=== PATIENT | male | born 1945 | race Caucasian/White ===

== ENCOUNTER 2016-12-22 14:51 | Inpatient (IN) | payer MEDICARE ==
--- NOTE | ~2016-12-22 | PUL ---
[id number] [place]. [address] NAME: MARBELLA GARCIA : 47 STATUS : ADM IN [facility]#: [id number] AGE: 71 ADM/REG DATE : 12/22/16 MR#: [id number] REPORT SERV DATE: 12/24/16 DICTATED BY: VALERIE ESCOBAR DATE: 12/24/16 REPORT STATUS : Draft TRANSCRIBED BY: MODL DATE: 12/24/16 PULMONARY FUNCTION TEST OVERNIGHT OXIMETRY START DATE OF TESTIN12/23/2016. END DATE OF TESTIN12/24/2016. COMMENTS: Testing conducted with the patient using home CPAP along with supplemental oxygen at a flow rate of 4 L/minute. RESULTS: Total valid sampling time, 5 hours 59 minutes and 31 seconds. Total time with an oxygen saturation less than 88%, 7 minutes and 40 seconds. Oxygen desaturation event index, 4.3. IMPRESSION: There was significant desaturation during this study conducted with the patient breathing supplemental oxygen at a flow rate of 4 L/minute along with his home CPAP. Recommend increasing the oxygen flow rate to a minimum of 5 L/minute with sleep. PS/MODL Valerie Escobar M.D. / [id number] CC: MD King Allen M.D.
--- NOTE | ~2016-12-22 | CN ---
Consultation Report [facility] [address] [place]. [address] NAME: MARBELLA LUKE : 47 STATUS : ADM Pb PAT#: [id number] AGE: 71 ADM/REG DATE : 12/22/16 MR#: [id number] REPORT SERV DATE: 12/22/16 DICTATED BY: VALERIE ESCOBAR DATE: 12/22/16 REPORT STATUS : Draft TRANSCRIBED BY: MODL DATE: 12/22/16 PULMONARY CONSULTATION DATE OF CONSULTATION: 12/22/2016 REASON FOR CONSULTATION: COPD exacerbation. HISTORY OF PRESENT ILLNESS: Mr. Luke is a 71-year-old white male, former smoker, with bullous emphysema, COPD, chronic bronchitis, hypoxia, on supplemental oxygen at a flow rate of 3 L/minute 24 hours per day, and obstructive sleep apnea on CPAP, who was admitted with a COPD exacerbation and acute exacerbation of chronic bronchitis. He is known to me from the outpatient pulmonary office. He is complaining of a two-week history of cough productive of copious clear sputum that prevented him from using his CPAP as prescribed. He also reports dyspnea that has increased from his baseline and wheezing. He denies fever, chills, nausea, vomiting, night sweats, hemoptysis, or chest pain. He did note that his heart rate was as high as 130 over the past few days, but states this was with significant dyspnea. He has been compliant with his outpatient pulmonary medications including Pulmicort 0.5 mg via nebulization twice daily, Brovana 15 mcg via nebulization twice daily, Spiriva 18 mcg once daily, and albuterol. He states he has been using albuterol via nebulization three to four times per day during the past two weeks due to his current symptoms. Since admission, he has received his usual bronchodilator regimen as well as IV steroids and states he is currently feeling "some better." PAST MEDICAL HISTORY: 1. COPD as noted above. 2. Bullous emphysema. 3. Chronic bronchitis. 4. Chronic hypoxia-dependent on supplemental oxygen at a flow rate of minimum of 3 L/minute 24 hours per day. 5. Obstructive sleep apnea-on CPAP. 6. Previous pneumothorax x2 related to prior COPD exacerbation and extreme coughing with rupture of blebs, treated with chest tube placement. 7. Anxiety. 8. Hypertension. 9. Chronic pain. FAMILY HISTORY: He denies family history of pulmonary diseases. SOCIAL HISTORY: He smoked one and a half to two packs of cigarettes per day for more than 40 years and quit two years ago. He denies ethanol intake, past/present drug use, chewing Consultation Report [address] [place]. [address] NAME: MARBELLA LUKE : 47 STATUS : ADM Pb PAT#: [id number] AGE: 71 ADM/REG DATE : 12/22/16 MR#: [id number] REPORT SERV DATE: 12/22/16 DICTATED BY: VALERIE ESCOBAR DATE: 12/22/16 REPORT STATUS : Draft TRANSCRIBED BY: MODL DATE: 12/22/16 tobacco, or occupational exposures. He is and has three children. MEDICATIONS: Outpatient and inpatient medications were reviewed and are as documented in the record. His outpatient pulmonary medications are Brovana 15 mcg via nebulization twice daily, Pulmicort 0.5 mg via nebulization twice daily, Spiriva 18 mcg once daily, and albuterol via nebulization as needed. He also has an albuterol metered dose inhaler. ALLERGIES: HE DENIES MEDICATION ALLERGIES. REVIEW OF SYSTEMS: A 10-point system review was conducted and is remarkable for the symptoms as described in the history of present illness. PHYSICAL EXAMINATION: VITAL SIGNS: Temperature 97.4 degrees, heart rate 82, blood pressure 154/89, respiratory rate 22 to 24, and oxygen saturation 99% on supplemental oxygen at a flow rate of 3 L/minute. GENERAL: Ill-appearing pale white male. Alert, oriented, appears short of breath. HEENT: Normocephalic. Atraumatic. There is no scleral icterus. The conjunctivae are clear. The oropharynx is clear. NECK: Supple. No lymphadenopathy was noted. LUNGS: There are scattered expiratory wheezes in all marquez. There are diminished breath sounds throughout. There are no crackles or rhonchi. The patient is tachypneic. HEART: Regular rate and rhythm with no ectopy. ABDOMEN: Soft. Nontender. Mildly distended. There are normal bowel sounds in all four quadrants. BILATERAL EXTREMITIES: There is no clubbing, cyanosis, or edema. NEUROLOGICAL: A limited exam was found to be nonfocal. SKIN: Generalized pallor. No rashes were noted. LABORATORY RESULTS: Labs were reviewed and are as documented in the record. Notable labs include an arterial blood gas that was done in the emergency room that revealed a pH of 7.37, pCO2 of 67, and pO2 of 125 on supplemental oxygen at a flow rate of 3 L/minute. White blood cell count 9.2. BNP 32.3. The procalcitonin is pending. IMAGING: The chest x-ray done this admission revealed stable right apical scarring and stable bullous emphysema. There are no acute infiltrates or effusions noted. The CT scan of the chest done this admission revealed stable biapical scarring and bullous emphysema. There is hyperinflation, but no infiltrates or effusions. ASSESSMENT AND PLAN: Consultation Report [facility] [address] [facility] [address] [facility] [place] [address] NAME: MARBELLA LUKE : 47 STATUS : ADM Pb PAT#: [id number] AGE: 71 ADM/REG DATE : 12/22/16 MR#: [id number] REPORT SERV DATE: 12/22/16 DICTATED BY: VALERIE ESCOBAR DATE: 12/22/16 REPORT STATUS : Draft TRANSCRIBED BY: CHAYO DATE: 12/22/16 1. Mr. Luke is a 71-year-old white male, former smoker, with obstructive sleep apnea, chronic hypoxia-admitted with a chronic obstructive pulmonary disease exacerbation and acute exacerbation of chronic bronchitis. 2. There is no evidence of acute infection. The patient has had symptoms for two weeks and his sputum is clear as noted above. 3. He has been started on doxycycline per the admitting physician and this is reasonable. Awaiting procalcitonin. 4. He has improved after treatment with his usual home bronchodilators and systemic steroids. His oxygenation and pCO2 are approximately at baseline on his arterial blood gas. 5. Recommend checking sputum for Gram stain and routine culture. 6. We would continue doxycycline. 7. Increase Solu-Medrol to 60 mg IV q.6 hours if the patient is actively wheezing. 8. Increase budesonide via nebulization from 0.5 mg q.12 to 1 mg q.12. 9. Continue Spiriva, DuoNeb, and Brovana. 10.We would improve pulmonary toilet by adding a flutter valve to his regimen. 11.Add a probiotic as he is on doxycycline. 12.He is to use his home CPAP for his obstructive sleep apnea. He was counseled to use this during naps and overnight while sleeping. 13.We reviewed the results of his CT scan of the chest that was done on this admission. He will need a six-month followup CT scan, which will be scheduled for him as an outpatient. Thank you very much for this consultation. Further recommendations to follow if indicated dependent on the patient's response to therapy. PS/MODL Valerie Escobar M.D. / [id number] CC: MD King Allen M.D.
--- NOTE | ~2016-12-22 | DS ---
Discharge Summary [id number] [place]. [address] NAME: MARBELLA GARCIA : 47 STATUS : DIS IN PAT#: [id number] AGE: 71 ADM/REG DATE : 12/22/16 MR#: [id number] REPORT SERV DATE: 12/29/16 DICTATED BY: JAYME DELAROSA DATE: 12/28/16 REPORT STATUS : Draft TRANSCRIBED BY: CHAYO DATE: 12/28/16 ADMISSION DATE: 12/22/2016 DISCHARGE DATE: 12/28/2016 CONSULTATION: Pulmonology, Valerie Sparks M.D. INVASIVE PROCEDURES: None. DISCHARGE DIAGNOSES: 1. Chronic obstructive pulmonary disease exacerbation. 2. Chronic hypercapnic respiratory failure. 3. Hypertension. 4. Anxiety disorder. 5. Physical deconditioning. HISTORY OF PRESENT ILLNESS: For detailed HPI, please make reference to Dr. Alta Pack's dictation on 12/22/2016. In brief, this is a 71-year-old male with medical history of chronic hypercapnic respiratory failure, home O2 dependent, obstructive sleep apnea CPAP dependent at night, who presented to the hospital with complaints of worsening shortness of breath, cough, and cough productive of whitish sputum. He denied any fever, no chills. No history of contact with any patient with upper respiratory tract infection. PHYSICAL EXAMINATION: VITAL SIGNS: On presentation blood pressure 149/68, temperature 98, heart rate 94, respiratory rate 26, oxygen saturation 97 on 3 L of oxygen. GENERAL: In obvious respiratory distress using accessory muscles of respiration. CHEST: Diminished breath sounds noted in the bilateral lower lung field with positive end- expiratory wheezes. LABORATORY DATA: ABG; pH 7.37, PaCO2 of 67, PaO2 of 125, bicarb 39 on 3 L of oxygen. CBC; white blood cell 9.2, hemoglobin 13.9, hematocrit 41.7, BNP 32, creatinine 1.01. Chest x-ray showed similar appearance of the chest with bullous emphysema in the upper lobe with scarring. A CT of the chest without contrast was done, showed interstitial thickening, large upper lobe bullous lesion consistent with COPD. Also noted was a stable 2.5 x 1.1 partially calcified nodule in the posterior aspect of the right upper lobe associated with linear regions of scarring and pleural thickening and has a benign appearance. An assessment of chronic hypercapnic respiratory failure with COPD exacerbation was made in the ER. The patient was admitted to the Hospitalist Service for further management. HOSPITAL COURSE: Chronic hypercapnic respiratory failure with COPD exacerbation. The patient was started on empiric IV methylprednisolone and covered with p.o. antibiotics. The patient's wheezing and shortness of breath continued to improve. Ingredient Handler was Discharge Summary [address] [address] NAME: MARBELLA GARCIA : 47 STATUS : DIS IN PAT#: [id number] AGE: 71 ADM/REG DATE : 12/22/16 MR#: [id number] REPORT SERV DATE: 12/29/16 DICTATED BY: JAYME DELAROSA DATE: 12/28/16 REPORT STATUS : Draft TRANSCRIBED BY: CHAYO DATE: 12/28/16 consulted. Added Brovana nebulization, Spiriva, and albuterol to patient's medication. Also an overnight pulse oximetry was done that confirmed the patient has excessive desaturation on 3 L of oxygen. It was due to nocturnal hypoxia secondary to obstructive sleep apnea. The patient was advised to increase nighttime oxygen to 5 L when at sleep and to continue 3 L during the day. The patient continued to do well. The patient continued to maintain adequate saturation in the upper 90s on 3 L of oxygen during the daytime. The patient's steroid was gradually weaned down and tapered down. The patient completed 5 day course of p.o. antibiotics. At the time of discharge, the patient was advised to continue prednisolone taper and continue followup with pediatric acute care unit nurse and primary care physician as an outpatient. Physical deconditioning. The patient had Physical Therapy evaluation during the course of this admission. It was noted that the patient required acute rehab placement at the time of discharge. The patient was accepted at [facility] for acute rehab. The patient to be discharged to continue acute rehabilitation. DISCHARGE MEDICATIONS: 1. Albuterol inhaler. 2. Diltiazem 180 mg p.o. daily. 3. Xanax 0.5 mg p.o. t.i.d. 4. Melatonin 6 mg p.o. at bedtime. 5. Spiriva inhaler one puff daily. 6. Prednisone taper. 7. Brovana. 8. Budesonide. 9. DuoNeb nebulization. DISCHARGE DISPOSITION: Acute rehab. DISCHARGE FOLLOWUP: 1. Follow up with Pulmonology as an outpatient within one to two weeks of discharge. 2. Follow up with primary care physician within two to three weeks of discharge. SPECIAL INSTRUCTION: Continue CPAP at night. Abstain from cigarette smoking. CODE STATUS: At the time of discharge, limited DNR. Greater than 35 minutes was used to prepare this patient's discharge, reconcile medication, and advised the patient on discharge plans and followup. DICTATED BY: MD KEIKO Allen/CHAYO Discharge Summary [address] [address] NAME: MARBELLA GARCIA : 47 STATUS : DIS IN PAT#: [id number] AGE: 71 ADM/REG DATE : 12/22/16 MR#: [id number] REPORT SERV DATE: 12/29/16 DICTATED BY: JAYME DELAROSA DATE: 12/28/16 REPORT STATUS : Draft TRANSCRIBED BY: CHAYO DATE: 12/28/16 Jayme Delarosa MD / [id number] CC: MD King Allen M.D. Pamela Sud, M.D.
--- NOTE | ~2016-12-22 | HP ---
History And Physical [id number] [facility] [place]. [address] NAME: MARBELLA GARCIA : 47 STATUS : REG ER PAT#: [id number] AGE: 71 ADM/REG DATE : 12/22/16 MR#: [id number] REPORT SERV DATE: 12/22/16 DICTATED BY: JEANIE LOPEZ DATE: 12/22/16 REPORT STATUS : Draft TRANSCRIBED BY: MODL DATE: 12/22/16 DATE OF ADMISSION: 12/22/2016 HISTORY OF PRESENT ILLNESS: The patient is very pleasant 71-year-old male, who presented to [facility] because of increased shortness of breath and cough with a whitish-to yellowish sputum production. According to the patient, it is going on for the last three days and he said because of the increased secretions, he could not use his CPAP, which he uses at night. He is dyspneic. He is coughing. He is on home oxygen and he used to smoke for many years, he quit three years ago. The patient denies chest pain. Denies any abdominal pain. No fever. No rash. No headaches. REVIEW OF SYSTEMS: All 14-point review of systems done and negative, except what is stated in the history of present illness. PAST MEDICAL HISTORY: Known for COPD, emphysema, oxygen dependent; a history of pneumothorax, collapsed lung x2, he said when he had COPD exacerbation, and he had the chest tube placed once when he was at [facility] and second time when he was at [facility]. He denies any history of cardiac disease. He denies any diabetes. No strokes. No heart attacks. He said that he had elevated heart rate when he had COPD exacerbation in the past, but he could not specify if he had any specific arrhythmia. He denies any major surgeries, except chest tube placement for pneumothorax. ALLERGIES: NO KNOWN DRUG ALLERGIES. SOCIAL HISTORY: He quit smoking three years ago, he used to smoke one and a half to two packs a day. He denies any use of alcohol. No recreational drug use. He is . He lives with a friend. He has children. FAMILY HISTORY: He does not know anything about his father's medical history because he when the patient was 6 years old. Same thing, he does not know about mother's past medical history. HOME MEDICATIONS: Include albuterol nebulized as needed, Xanax 0.5 mg three times a day, Brovana 15 mcg twice a day, Pulmicort 0.5 inhaled twice a day, calcium with vitamin D 600 p.o. b.i.d., diltiazem 180 mg a day, hydrocodone with acetaminophen 7.5/325 one tablet every eight hours p.r.n. for pain, melatonin 6 mg p.o. at bedtime, prednisone 15 mg daily, and Spiriva one capsule by inhalation q.24 hours. PHYSICAL EXAMINATION: GENERAL: Well-nourished, well-developed male, in mild distress. He is using his abdominal muscles to breathe, but he said that after he was given steroids, he is feeling a little bit better. VITAL SIGNS: Blood pressure 149/68, temperature 98, heart rate was 94, respiratory rate 26, oxygen saturation was 97 on 3 L of nasal cannula. History And Physical [address] [address] NAME: MARBELLA GARCIA : 47 STATUS : REG ER PAT#: [id number] AGE: 71 ADM/REG DATE : 12/22/16 MR#: [id number] REPORT SERV DATE: 12/22/16 DICTATED BY: JEANIE LOPEZ DATE: 12/22/16 REPORT STATUS : Draft TRANSCRIBED BY: CHAYO DATE: 12/22/16 HEENT: Head, atraumatic and normocephalic. Conjunctivae clear. Pupils are equal and reactive to light and accommodation. Extraocular muscles are intact. NECK: Supple. Trachea is midline. No supraclavicular or cervical adenopathy. LUNGS: Diminished breath sounds bilaterally with positive end-expiratory wheezing and increased respiratory effort with the increased use of abdominal muscles. CARDIOVASCULAR SYSTEM: Regular rate and rhythm. Point of maximal impulse not displaced. ABDOMEN: Soft, nontender, nondistended. Positive normoactive bowel sounds. EXTREMITIES: No clubbing or cyanosis. No edema. SKIN: Normal color and turgor. PSYCHIATRIC: Normal mood and affect. NEUROLOGIC: Awake, alert, and oriented in time, place, and person. Muscle strength is 5/5 bilaterally on the upper and lower extremities. LABORATORY RESULTS: ABG, pH 7.37, pCO2 of 67, pO2 of 125, bicarbonate 39 on 3 L of oxygen. His CBC with white count 9.2, hemoglobin 13.9, hematocrit 41.9, and platelet count 221. PT 12.6, INR is 1. Sodium 137, potassium 4.4, chloride 97, carbon dioxide 40, BUN 24, creatinine 1.01, blood sugar 130. BNP was 32.3. Chest x-ray showed similar appearance of the chest with bullous emphysema and upper lobe scarring. CT of the chest without contrast, which was done today in the emergency room, showed lung marquez are hyperaerated with interstitial thickening and large upper lobe bullous lesions, consistent with COPD. There is a stable 2.5 to 1.1 cm partially calcified nodule in the posterior aspect of the right upper lobe, associated with linear regions of scarring and pleural thickening and has a benign appearance. There is also a stable linear opacity in the posterior aspect of the left lung apex associated with pleural thickening that measures 2.2 to 1.5 cm. This finding also likely represents benign scarring. Continued six-month followup recommended. Impression, stable bilateral upper lobe opacities that likely represent benign scarring, additional six-month followup recommended, severe COPD, no adenopathy. EKG showed normal sinus rhythm with a rate of 90 with biatrial enlargement. ASSESSMENT AND PLAN: 1. This is very pleasant 71-year-old male with oxygen-dependent chronic obstructive pulmonary disease/emphysema with a long-term history of smoking and a history of pneumothorax x2 because of chronic obstructive pulmonary disease exacerbation, presented with acute chronic obstructive pulmonary disease exacerbation/emphysema. a. Respiratory distress. b. CPAP dependent. c. Right now after intravenous steroids, the patient is feeling better. We will continue intravenous steroids. We will put him on oral doxycycline. We will ask to bring his CPAP mask as well. I will also check his serum procalcitonin level for the decision for antibiotics to be continued. d. We will recheck his chest x-ray in the morning. e. I also spoke with gyroscope repairer on-call, Dr. Sparks's nurse practitioner there and ask to see the patient today because of his shortness of breath. Pulmonary to see him in case if he needs more interventions. He is a CO2 retainer, but right now, his pH is compensated. We will continue to monitor him and he will go to cardiac telemetry bed, I have already discussed with [facility]. 2. Anxiety. We will continue his Xanax. History And Physical [id number] [place]. [address] NAME: MARBELLA GARCIA : 47 STATUS : REG ER PAT#: [id number] AGE: 71 ADM/REG DATE : 12/22/16 MR#: [id number] REPORT SERV DATE: 12/22/16 DICTATED BY: JEANIE LOPEZ DATE: 12/22/16 REPORT STATUS : Draft TRANSCRIBED BY: CHAYO DATE: 12/22/16 My partner will see this patient starting tomorrow morning, and I will ask the patient also to bring his CPAP mask. MG/CHAYO Jeanie Lopez M.D. / [id number] CC: King Garzon M.D.
[2016-12-22 13:36] LABS: BASOPHILS 0.2 %; BASOPHILS ABSOLUTE 0.02 10/3/uL (0.0-0.16); EOSINOPHILS 0 %; HEMATOCRIT 41.9 % (40.0-51.0); HEMOGLOBIN 13.9 g/dL (13.6-17.8); IMMATURE GRANULOCYTES 0.4 %; IMMATURE GRANULOCYTES ABSOLUTE 0.04 10/3/uL (0.0-0.11); LYMPHOCYTES 11.7 %; LYMPHOCYTES ABSOLUTE 1.07 10/3/uL (0.67-4.30); MEAN CORPUS HGB CONC 33.2 g/dL (32.0-36.0); MEAN CORPUSCULAR HEMOGLOB 30.3 pg (26.0-34.0); MEAN CORPUSCULAR VOLUME 91.3 fL (80-100); MEAN PLATELET VOLUME 9.8 fL (9.2-13.0); MONOCYTES 10.5 %; MONOCYTES ABSOLUTE 0.96 10/3/uL (0.21-1.20); NEUTROPHILS 77.2 %; NEUTROPHILS ABSOLUTE 7.09 10/3/uL (2.02-8.40); PLATELET COUNT 221 10/3/uL (150-400); RBC DISTRIBUTION WIDTH 12.4 % (12.0-16.0); RED CELL COUNT 4.59 10/6/uL (4.7-6.1); WHITE BLOOD CELLS 9.2 10/3/uL (4.5-10.5)
[2016-12-22 13:40] LABS: MANUAL DIFF NO %
[2016-12-22 13:43] LABS: PARTIAL THROMBO TIME 24.7 SEC (22.5-37.2); PROTIME (NOT ORD) 12.6 SEC (12.0-14.5)
[2016-12-22 13:52] LABS: A/G RATIO 0.9 (0.7-1.9); ALBUMIN 3.4 G/DL (3.5-5.0); ALKALINE PHOSPHATASE 63 U/L (45-117); BUN (BLOOD UREA NITROGEN) 24 MG/DL (6-23); CALCIUM, SERUM 9.3 MG/DL (8.5-10.4); CHLORIDE, SERUM 97 MMOL/L (96-112); CO2 (CARBON DIOXIDE) 40 MMOL/L (24-34); CREATININE 1.01 MG/DL (0.70-1.30); GFR AFRICAN AMERICAN 87 ML/MIN (>=60); GFR NON AFRICAN AMERICAN 75 ML/MIN (>=60); GLOBULIN 3.9 G/DL (2.5-4.1); GLUCOSE, SERUM 130 MG/DL (60-99); POTASSIUM, SERUM 4.4 MMOL/L (3.5-5.3); SGOT(AST) 31 U/L (5-40); SGPT(ALT) 29 U/L (5-65); SODIUM, SERUM 137 MMOL/L (135-148); TOTAL BILIRUBIN 0.3 MG/DL (0-1.2); TOTAL PROTEIN 7.3 G/DL (6.0-8.5)
[2016-12-22] MEDS ORDERED: PULRESP.5 INH (15:15)
[2016-12-22] MEDS ORDERED: BROVANA15 MCG INH (15:15)
[2016-12-22] MEDS ORDERED: ALBUTEROL0.083 % INH (15:16)
[2016-12-22] MEDS ORDERED: SPIRIVA INH (15:16)
[2016-12-22] MEDS ORDERED: MELA3 PO (15:17)
[2016-12-22] MEDS ORDERED: CALTRA600D PO (15:17)
[2016-12-22] MEDS ORDERED: P5 PO (15:18)
[2016-12-22] MEDS ORDERED: CARDCD180 PO (15:18)
[2016-12-22] MEDS ORDERED: NORCO1 TA2 PO (15:19)
[2016-12-22] MEDS ORDERED: X5 PO (15:20)
[2016-12-22 18:41] LABS: TROPONIN I <0.02 NG/ML (<0.05)
[2016-12-22 22:44] LABS: TROPONIN I <0.02 NG/ML (<0.05)
[2016-12-22 23:06] LABS: PROCALCITONIN 0.08 ng/mL (<0.5)
[2016-12-23 05:40] LABS: BASOPHILS 0.3 %; BASOPHILS ABSOLUTE 0.02 10/3/uL (0.0-0.16); EOSINOPHILS 0 %; HEMATOCRIT 38.9 % (40.0-51.0); HEMOGLOBIN 12.9 g/dL (13.6-17.8); IMMATURE GRANULOCYTES 0.4 %; IMMATURE GRANULOCYTES ABSOLUTE 0.03 10/3/uL (0.0-0.11); LYMPHOCYTES 8.8 %; LYMPHOCYTES ABSOLUTE 0.66 10/3/uL (0.67-4.30); MANUAL DIFF NO %; MEAN CORPUS HGB CONC 33.2 g/dL (32.0-36.0); MEAN CORPUSCULAR HEMOGLOB 29.9 pg (26.0-34.0); MEAN CORPUSCULAR VOLUME 90.3 fL (80-100); MEAN PLATELET VOLUME 9.9 fL (9.2-13.0); MONOCYTES 5.7 %; MONOCYTES ABSOLUTE 0.43 10/3/uL (0.21-1.20); NEUTROPHILS 84.8 %; NEUTROPHILS ABSOLUTE 6.39 10/3/uL (2.02-8.40); PLATELET COUNT 209 10/3/uL (150-400); RBC DISTRIBUTION WIDTH 12.1 % (12.0-16.0); RED CELL COUNT 4.31 10/6/uL (4.7-6.1); WHITE BLOOD CELLS 7.5 10/3/uL (4.5-10.5)
[2016-12-23 05:58] LABS: BUN (BLOOD UREA NITROGEN) 24 MG/DL (6-23); CALCIUM, SERUM 9.1 MG/DL (8.5-10.4); CHLORIDE, SERUM 97 MMOL/L (96-112); CO2 (CARBON DIOXIDE) 39 MMOL/L (24-34); CREATININE 0.76 MG/DL (0.70-1.30); GFR AFRICAN AMERICAN 107 ML/MIN (>=60); GFR NON AFRICAN AMERICAN 92 ML/MIN (>=60); GLUCOSE, SERUM 137 MG/DL (60-99); POTASSIUM, SERUM 4.4 MMOL/L (3.5-5.3); SODIUM, SERUM 140 MMOL/L (135-148)
[2016-12-24 06:58] LABS: HEMOGLOBIN 12.5 g/dL (13.6-17.8); MEAN CORPUS HGB CONC 32.9 g/dL (32.0-36.0); MEAN CORPUSCULAR VOLUME 91.3 fL (80-100); MEAN PLATELET VOLUME 10.1 fL (9.2-13.0); PLATELET COUNT 243 10/3/uL (150-400); RBC DISTRIBUTION WIDTH 12.2 % (12.0-16.0); RED CELL COUNT 4.16 10/6/uL (4.7-6.1)
[2016-12-24 06:59] LABS: MANUAL DIFF YES %; WHITE BLOOD CELLS 13.5 10/3/uL (4.5-10.5)
[2016-12-24 07:07] LABS: ALBUMIN 2.9 G/DL (3.5-5.0); CALCIUM, SERUM 9.3 MG/DL (8.5-10.4); CHLORIDE, SERUM 97 MMOL/L (96-112); CREATININE 0.75 MG/DL (0.70-1.30); GFR AFRICAN AMERICAN 108 ML/MIN (>=60); GFR NON AFRICAN AMERICAN 93 ML/MIN (>=60); GLUCOSE, SERUM 135 MG/DL (60-99); PHOSPHORUS, SERUM 3.8 MG/DL (2.5-4.5); POTASSIUM, SERUM 4.3 MMOL/L (3.5-5.3); SODIUM, SERUM 139 MMOL/L (135-148)
[2016-12-24 07:10] LABS: BUN (BLOOD UREA NITROGEN) 28 MG/DL (6-23); CO2 (CARBON DIOXIDE) 41 MMOL/L (24-34)
[2016-12-24 07:53] LABS: BAND NEUTROPHILS 16 %; LYMPHOCYTES 4 %; LYMPHOCYTES ABSOLUTE (CALC) 0.54 10/3/uL (0.67-4.30); MONOCYTES 3 %; MONOCYTES ABSOLUTE (CALC) 0.41 10/3/uL (0.21-1.20); NEUTROPHILS ABSOLUTE (CALC) 12.56 10/3/uL (2.02-8.40); PLATELET ESTIMATE ADQ (ADEQUATE); RBC MORPHOLOGY NORM (NORMAL); SEGMENTED NEUTROPHIL (0) 77 %; TOTAL NUCLEATED CELLS 100
[2016-12-27 06:09] LABS: HEMATOCRIT 37.1 % (40.0-51.0); HEMOGLOBIN 12.2 g/dL (13.6-17.8); MEAN CORPUS HGB CONC 32.9 g/dL (32.0-36.0); MEAN CORPUSCULAR HEMOGLOB 29.9 pg (26.0-34.0); MEAN CORPUSCULAR VOLUME 90.9 fL (80-100); MEAN PLATELET VOLUME 9.8 fL (9.2-13.0); PLATELET COUNT 272 10/3/uL (150-400); RBC DISTRIBUTION WIDTH 12.2 % (12.0-16.0); RED CELL COUNT 4.08 10/6/uL (4.7-6.1); WHITE BLOOD CELLS 11.1 10/3/uL (4.5-10.5)
[2016-12-27 06:10] LABS: MANUAL DIFF YES %
[2016-12-27 06:45] LABS: BAND NEUTROPHILS 13 %; EOSINOPHILS 1 %; EOSINOPHILS ABSOLUTE (CALC) 0.11 10/3/uL (0.0-0.53); HELMET CELLS OCC (0-2/OIF); IMMATURE GRANS ABSOLUTE (CALC) 0.44 10/3/uL (0.0-0.11); LYMPHOCYTES 9 %; METAMYELOCYTES 3 %; MONOCYTES 16 %; MONOCYTES ABSOLUTE (CALC) 1.78 10/3/uL (0.21-1.20); MYELOCYTES 1 %; NEUTROPHILS ABSOLUTE (CALC) 7.77 10/3/uL (2.02-8.40); PLATELET ESTIMATE ADQ (ADEQUATE); SEGMENTED NEUTROPHIL (0) 57 %; TOTAL NUCLEATED CELLS 100; TOXIC GRANULATION 1+; VACUOLATED NEUTROPHILES OCC
[2016-12-28 10:59] LABS: ALLENS TEST Pos; CARBOXYHEMOGLOBIN 0.7 % (0-3); HCO3 (ACTUAL BICARBONATE) 42.3 MEQ/L (23-27); HEMOBLOGIN CONTENT 14.6 G/DL (14-18); INSTRUMENT SERIAL # 8083; METHEMOGLOBIN 0.1 % (0-3); O2 CONTENT 19.7 VOL% (18-24); PCO2 (CO2 TENSION) 69 MMHG (35-45); PO2 (O2 TENSION) 85 MMHG (79-93); SAMPLE Arterial; pH 7.41 (7.37-7.43)
== END 2016-12-28 19:36 | DRG 191 ==
LOC: ER 14:51 → 7NO 17:15
PROVIDERS: Emergency Medicine; Hospitalist
DX: J44.1 Chronic obstructive pulmonary disease with (acute) exacerbation (principal); J96.12 Chronic respiratory failure with hypercapnia; Z99.81 Dependence on supplemental oxygen; F41.9 Anxiety disorder, unspecified; Z87.891 Personal history of nicotine dependence; I10 Essential (primary) hypertension; G89.29 Other chronic pain; G47.33 Obstructive sleep apnea (adult) (pediatric); Z51.5 Encounter for palliative care
CPT/HCPCS: 36600; 71010; 80048; 80053; 80069; 82330; 82803; 82805; 82947; 83735; 83880; 84132; 84145; 84295; 84484; 85014; 85025; 85610; 85730; 87070; 87205; 93005; 94640; 94667; 94668; 94762; 96374; 97162-GP; 99285; A9270-GY; G8978-CK-GP; G8979-CJ-GP; J2930